=== PATIENT | male | born 1940 | race Caucasian/White ===

== ENCOUNTER 2016-06-16 15:27 | Day surgery (SDC) | payer MEDICARE, OTHER ==
[~2016-06-16] VITALS: Ht 195.6 cm; Wt 93.5 kg
[~2016-06-16 15:27] MED LIST: AMLO10TA2 PO; ENAL10TA PO; MULT1TAB84 PO; PROPOFOL 200 MG/20 ML AMP IV ONE
[2016-06-16 15:40] VITALS: BP 158/86; PULSE 75; RESP 16; TEMP 97.8; O2SAT 98
[2016-06-16] MEDS ORDERED: CHLORHEXIDINE GLUCONATE 4% SOLN 120 ML BTL TOP SCH (16:15)
[2016-06-16] MEDS ORDERED: ceFAZolin 2 GM PREMIX 50 ML IV SCH (16:15)
[2016-06-16] MEDS ORDERED: VANCOMYCIN 1000 MG/NS 250 ML (for <70 kg) IV SCH ×2 (16:15)
[2016-06-16] MEDS ORDERED: GENTAMICIN SULFATE 80 MG/2 ML VIAL ONE (16:59)
[2016-06-16] MEDS ORDERED: INSULIN HUMAN REGULAR 1,000 UNITS/10 ML VIAL SQ PRN (17:00)
[2016-06-16] MEDS ORDERED: LACTATED RINGER'S 1000 ML IV SCH (17:00)
[2016-06-16] MEDS ORDERED: SODIUM CHLORID 0.9% 500 ML IV SCH (17:00)
[2016-06-16] MEDS ORDERED: METOPROLOL TARTRATE 25 MG TAB PO PRN (17:00)
[2016-06-16] MEDS ORDERED: HYDR-3533 PO (20:02)
--- NOTE | 2016-06-16 20:02 | PD.OP ---
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 Patient was found to have infection of the RIGHT index finger for about 6-7 weeks. 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 Informed consent was obtained after detailed discussion of risk and benefits of surgery. Operative site was marked. A timeout was performed and agreed upon all members of the surgical team to identify the patient's name, age, operative site, operating surgeon, medical record number and planned procedure. IV sedation and Local anesthesia using 0.25% Marcaine was used. Operative arm was prepped with alcohol followed by Hibiclens and draped in usual sterile fashion. Procedure began with an incision over the dorsal radial border of the PIP joint overlying the small puncture wound. There, a small amount of purulent fluid was expressed. There was a small piece of foreign body resembling a thorn which was identified and removed. A small rent was made in the PIP joint capsule. the joint was irrigated thoroughly. Attention was now turned to obtaining a biopsy. A core needle biopsy was introduced in the middle phalanx and a small piece core bone was collected and sent for laboratory analysis. All the areas mentioned above were copiously irrigated with antibiotics containing saline. The wounds were all closed loosely with 3-0 chromic suture. Sterile dressing was applied. The patient was awakened and then taken to recovery in good condition. DRAINS: None Dionisio Garcia Jr., MD Jun 16, 2016 20:02
[2016-06-16] MEDS ORDERED: BUPIVACAINE/EPINEPHRINE 0.25% PF 30 ML VIAL ONE (20:13)
[2016-06-16] MEDS ORDERED: ACETAMINOPHEN/HYDROcodone 325 MG/5 MG TAB PO PRN (20:15)
[2016-06-16] MEDS ORDERED: SODIUM CHLORIDE 0.9% FLUSH 5 ML FLUSH IVF PRN (20:15)
[2016-06-16] MEDS ORDERED: MORPHINE SULFATE 4 MG/ML INJ IV PUSH PRN (20:15)
[2016-06-16] MEDS ORDERED: ONDANSETRON HCL 4 MG/2 ML VIAL IV PRN (20:15)
[2016-06-16 20:45] VITALS: TEMP 97.5
[2016-06-16] MEDS ORDERED: SODIUM CHLORIDE 0.9% FLUSH 5 ML FLUSH IVF SCH (21:00)
[2016-06-16 21:35] VITALS: BP 125/68; PULSE 77; RESP 16; O2SAT 99
--- NOTE | 2016-06-17 23:57 | EKG ---
Date Performed: 06/16/2016 Time Performed: 16:09:03 PTAGE: 75 years EKG: Sinus rhythm WITH SINUS ARRHYTHMIA BORDERLINE LEFT AXIS DEVIATION LEFT VENTRICULAR HYPERTROPHY AND ST-T CHANGE AB NORMAL ECG NO PREVIOUS TRACING DOCTOR: Conor Giles Interpretating Date/Time 06/17/2016 23:56:08
== END 2016-06-16 21:35 | disposition home or self-care (01) ==
LOC: HSDC 15:27
PROVIDERS: ATTEND Orthopaedic Surgery
DX: M86.8X4 Other osteomyelitis, hand (principal); M00.9 Pyogenic arthritis, unspecified; B96.89 Other specified bacterial agents as the cause of diseases classified elsewhere; R94.31 Abnormal electrocardiogram [ECG] [EKG]; I10 Essential (primary) hypertension
CPT/HCPCS: 01830; 26034; 87015; 87070; 87102; 87116; 87176; 87186; 87188; 87205; 87206; 93005; J1580; J3370; J7050; J7120